=== PATIENT | female | born 1995 | race Caucasian/White ===

== ENCOUNTER 2025-05-06 13:45 | Outpatient (AMB) | payer MEDICAID, SELFPAY ==
[2025-05-06 14:18] VITALS: BP 127/76; PULSE 92; RESP 17; TEMP 36.8; O2SAT 97; BMI 34.7
--- NOTE | 2025-05-06 14:18 | OBCLNT_ITS ---
Vital Signs 05/06/25 14:18 Height 1.47 m Height Method Measured Weight 75.41 kg Weight Measurement Method Standing Scale BMI 34.7 BP 127/76 Blood Pressure Source Automatic Cuff Blood Pressure Location Right Upper Arm Position Sitting Respiration 17 Pulse 92 Pulse Source Monitor Temp 98.2 F Temp Source Temporal Artery Scan Pulse Oximetry (%) 97 Oxygen Delivery Method Room Air Allergies/Home Meds Allergies & Medications Allergies naproxen Allergy (Verified 05/06/25 14:19) Medication Reconciliation vits no.126-ferrous fum 28 mg iron-folic acid 800 mcg tablet (Classic ) tab PO 05/06/25 [History Confirmed 05/06/25] Intake Visit Data Collection New Patient or Established: New Patient (never been to [facility]) Reason for Visit:: Transfer of care 29 weeks Consent obtained for Telemed Visit: No Seen by Clinical Staff ONLY (RN/MA): No Language: Patient speaks South Korean only Fountain Operator Required: Yes Fountain Operator's name/title: Mary Jane medical referral coordinator Do You Feel Safe at Home: Yes Authorities Contacted: N/A PCP or OBGYN visit in last 3 months: No Hx Now: Yes Are you currently on any form of Control: No Last menstrual period: 11/15/24 Pain Present Currently: No Pain Scale Used: Chu-Coulter/Numerical Pain scale:: 0 Smoking Status Smoking Status: Never smoker Questionnaires Covid-19 Vaccine Questionnaire Has patient been vacinated for Covid-19 Have you been vacinated for Covid-19: No PHQ-9 PHQ-2 Over the last 2 weeks, how often have you been bothered by any of the following problems? 1. Little interest or pleasure in doing things: not at all 2. Feeling down, depressed, or hopeless: not at all Total score: 0 PHQ-9 3. Trouble falling or staying asleep, or sleeping too much: Not at all 4. Feeling tired or having little energy: Not at all 5. Poor appetite or overeating: Not at all 6. Feeling bad about yourself - or that you are a failure or have let yourself or your family down: Not at all 7. Trouble concentrating on things, such as reading the newspaper or watching television: Not at all 8. Moving or speaking so slowly that other people could have noticed? - Or the opposite - being so fidgety or restless that you have been moving around a lot more than usual: not at all 9. Thoughts that you would be better off or of hurting yourself in some way: Not at all Total score: 0 If you checked off any problems, how difficult have these problems made it for you to do your work, take care of things at home, or get along with other people?: not difficult at all Source: Developed by Drs. Evgeny Salomon, Brittney Aleman, Bola Tran and colleagues, with an educational supa from [employer]. Social History Living Situation History Marital Status: Lives With: Children Housing: House Housing Other:: Has 2 children at home. Stays at home. Tobacco History Smoking Status: Never smoker Alcohol History Alcohol Intake: Never Domestic Abuse History Do You Feel Safe at Home: Yes History of Present Illness HPI Narrative The patient is a very pleasant 29-year-old -0-0-2 female. She is South Korean-speaking only and her entire physical exam and interview was conducted with Mary Jane medical referral coordinator present. Patient presents as a transfer of care at 29 weeks for history of x 2. Both of her C-sections were in [place]. The first one was for intolerance to of labor at 37 weeks. The second was an elective repeat. Her EDC is 07/25/2025. She was seeing Dr. Vanessa. She states she did her glucose and that she had a normal structural survey during . We have all her records except for her glucose challenge test. Her ultrasound is normal dated 03/08/25. She had a normal NIPT. 46 XY. She reports good movement little loss of fluids no contractions. Patient has a vertical incision on her abdomen and is okay with a Pfannenstiel incision this time. She does not desire a tubal ligation. She stays home with her children. She has an 8-year-old son and a 5-year-old daughter at home. DIRECTOR MONEY: Past Medical History Additional Operations/Hospitalizations (year & reason): 2017 primary in [place] for distress male 2019 repeat [place] female at 39 weeks Other Relevant History: No chronic medical problems, no diabetes no hypertension no asthma. OB Initial Visit OB Flowsheet OB Flowsheet Initial Weight: Not Recorded Date -?-?-?-?-?-?-?-?-?-?-?-?- EGA Weight BP Alb Glu CTX Pres Fundal ht FHR Mov Dilation Station Effacement Hx Notes Visit Note 05/06/25 -?-?-?-?-?-?-?-?-?-?-?-?- 28w 4d 75.41 kg 127/76 absent 31 147 act jose No contractions loss of fluid or vaginal bleeding. Need glucos e challenge results Menstrual History Menstrual reliability: definite Flow: normal Menstrual regularity: regular Monthly: Yes Age at menarche: 14 On control pills at conception: No Date of positive home test: 12/03/24 OB History : 3 Para: 2 Hx # Pregnancies: 2 Hx Total # of Abortions (Spontaneous & Elective): 0 # of Living Children: 2 Delivery History 1st : Child's name: FLORINDA date: 06/28/17 sex: male Gestational age at delivery (weeks): 37 Delivery type: weight (lbs): 2721.554 g History of depression before or after : No Additional comments: PRE-TERM LABOR AT 37WKS 2nd : Child's name: LELIOT BELTRAN date: 02/26/20 sex: female Gestational age at delivery (weeks): 38 Delivery type: weight (lbs): 3628.739 g History of depression before or after : No Infection History & Risk Evaluation History of STDs: none HIV risk evaluation: low risk Hepatitis B risk evaluation: low risk Patient or partner has history of Genital Herpes: No Genetic Screening & History Genetic Screening/Teratology Counseling - Includes patient, baby's father, or anyone in either family with: 1. Patient's age 35 years or older as of estimated date of delivery: No 2. Thalassemia (Saudi Arabian, Korean, Mediterranean, or Background); MCV less t elena 80: No 3. Neural Tube Defect (Meningomyelocele, Spina Bifida, or Anencephaly): No 4. Congenital Heart Defect: No 5. Down Syndrome: No 6. Dae-Sachs (Ashkenazi Jain, Cajun, Burkinan [place]): No 7. Juvenal Disease (Ashkenazi Jain): No 8. Familial Dysautonomia (Ashkenazi Jain): No 9. Sickle Cell Disease or Trait (): No 10. Hemophilia or other blood disorders: No 11. Muscular Dystrophy: No 12. Cystic Fibrosis: No 13. [place]'s Chorea: No 14. Mental Retardation/Autism: No 15. Other inherited genetic or chromosomal disorder: No 16. Maternal Metabolic Disorder (EG,TYPE 1 Diabetes, PKU): No 17. Patient or baby's father had a child with defects not listed above: No 18. Recurrent loss or a stillbirth: No 19. Medications (including supplements, vitamins, herbs or otc drugs)/illicit/recreational drugs/alcohol since last menstrual period: No 20. Any other: No Infection History 1. Live with someone with TB or exposed to TB: No 2. Rash or viral illness since last menstrual period: No 3. Hepatitis B,C: No Other (see comments) Source: [employer] Office Procedures OB Clinic LOC & Office Proc's Nursing/Assessment Patient Status: Initial/New Patient OB Clinic Nursing Assessment: Medication Reconciliation, Update PMH in EMR and Vital Signs OB Clinic Coordination of Care: Complex Care and Chronic Disease 1-5, Consent,records obtained, informed consent, Education Simp Pt/Fam and 4+ Authorizations needed Special Needs: Heart tones New Patient Charge New Patient Point Assignment: [id number] New Patient Point Charge: EQUAL OPPORTUNITY OFFICER Level 4 (4899-1616) Assessment & Plan Diagnosis / Problem List (1) : Status: Acute Qualifiers: Weeks of gestation: 29 weeks Qualified Code(s): Z3A.29 - 29 weeks gestation of (2) Previous section complicating : Status: Acute Assessment and Plan: For repeat at 38 to 39 weeks secondary to undocumented scar x 2. Declines tubal ligation
== END 2025-05-06 14:46 | disposition home or self-care (01) ==
LOC: HODSOBC 13:45
PROVIDERS: Supervising Provider Obstetrics & Gynecology; Visit Provider Obstetrics & Gynecology
DX: O09.293 Supervision of pregnancy with other poor reproductive or obstetric history, third trimester (principal); O34.219 Maternal care for unspecified type scar from previous cesarean delivery; Z3A.28 28 weeks gestation of pregnancy; Z88.6 Allergy status to analgesic agent
CPT/HCPCS: 99204; G0463

== ENCOUNTER 2025-05-22 15:05 | Outpatient (AMB) | payer MEDICAID, SELFPAY ==
[2025-05-22 15:16] VITALS: BP 123/77; PULSE 103; RESP 17; TEMP 36.5; O2SAT 98; BMI 35.6
--- NOTE | 2025-05-22 15:16 | AMB.OBVISIT ---
Vital Signs 05/22/25 15:16 Height 1.47 m Height Method Measured Weight 77.111 kg Weight Measurement Method Standing Scale BMI 35.6 BP 123/77 Blood Pressure Source Automatic Cuff Blood Pressure Location Right Upper Arm Position Sitting Respiration 17 Pulse 103 H Pulse Source Monitor Temp 97.7 F Temp Source Temporal Artery Scan Pulse Oximetry (%) 98 Oxygen Delivery Method Room Air Allergies/Home Meds Allergies & Medications Allergies naproxen Allergy (Verified 05/22/25 15:17) Medication Reconciliation vits no.126-ferrous fum 28 mg iron-folic acid 800 mcg tablet (Classic ) tab PO 05/06/25 [History Confirmed 05/22/25] Intake Visit Data Collection New Patient or Established: Established Patient (seen at [facility] within 3 years) Reason for Visit:: OBC Consent obtained for Telemed Visit: No Seen by Clinical Staff ONLY (RN/MA): No Billboard Poster Required: Yes Billboard Poster's name/title: JOHANA ZARATE Do You Feel Safe at Home: Yes Authorities Contacted: N/A PCP or OBGYN visit in last 3 months: Yes Date of Last PCP or OBGYN visit: 05/06/25 Hx Now: Yes Are you currently on any form of Control: No Pain Present Currently: No Pain Scale Used: Chu-Coulter/Numerical Pain scale:: 0 Smoking Status Smoking Status: Never smoker Questionnaires Covid-19 Vaccine Questionnaire Has patient been vacinated for Covid-19 Have you been vacinated for Covid-19: No PHQ-9 PHQ-2 Over the last 2 weeks, how often have you been bothered by any of the following problems? 1. Little interest or pleasure in doing things: not at all PHQ-9 8. Moving or speaking so slowly that other people could have noticed? - Or the opposite - being so fidgety or restless that you have been moving around a lot more than usual: not at all Source: Developed by Drs. Evgeny Salomon, Brittney Aleman, Bola Tran and colleagues, with an educational supa from [employer]. Social History Living Situation History Marital Status: Lives With: Children Housing: House Housing Other:: Has 2 children at home. Stays at home. Divehi-speaking only Tobacco History Smoking Status: Never smoker Alcohol History Alcohol Intake: Never Domestic Abuse History Do You Feel Safe at Home: Yes ACCOUNTING MANAGER CPA: Past Medical History Additional Operations/Hospitalizations (year & reason): History of x 2 in [place] for was for distress History of Present Illness HPI Narrative The patient is a 29-year-old -0-0-2 history of x 2 in the past performed in [place]. She has an 8-year-old son and 5-year-old daughter. She has a vertical skin incision is okay with a Pfannenstiel. She started her care with Dr. Vanessa. She is a transfer of care. Care OB Visit Log OB Flowsheet Initial Weight: Not Recorded Date <del>?</del> EGA Weight BP Alb Glu CTX Pres Fundal ht FHR Mov Dilation Station Effacement Hx Notes Visit Note 05/06/25 <del>?</del> 28w 4d 75.41 kg 127/76 absent 31 147 active No contractions loss of fluid or vaginal bleeding. Need glucose challenge results 05/22/25 <del>?</del> 30w 6d 77.111 kg 123/77 absent 32 active No contractions loss of fluids or vaginal bleeding. GCT 86 LATOYA Calculator Estimated Delivery Date Method Current WG Current Estimate 07/25/25 LMP (Certain) 31w 4d Other Estimates 07/23/25 Ultrasound #1 31w 6d Expected Delivery Route/Plan History of x 2 For repeat Unknown scar as C-sections in [place], schedule at 38 weeks Patient okay with Pfannenstiel skin incision Specific Issue/Plans [facility]. Transfer of care from Dr. Vanessa at about 28 weeks. B+/antibody screen negative/hepatitis B surface antigen negative/rubella immune/RPR nonreactive/HIV negative/urine culture negative/hemoglobin A1c 5.4/hemoglobin 12.8/NIPT 46 XY/ Structural survey 20 weeks 3 days [facility] imaging on chart and normal Glucose challenge test 86 Pap normal No urine or gonorrhea chlamydia on the chart Notes Visit Date: 05/06/25 Last Updated by: Arlin Franklin (OB Clinic)MD labs [facility] on chart be positive antibody negative hepatitis B surface antigen negative rubella immune RPR nonreactive HIV negative urine culture negative hemoglobin A1c 5.4 hemoglobin 12.8 NIPT 46 XY 20-3/7 weeks ultrasound from [facility] on chart and normal. Pending glucose challenge test. Patient had a Pap without enough cells unsure whether this was repeated. No GC chlamydia on chart. Office Procedures OB Clinic LOC & Office Proc's Nursing/Assessment Patient Status: Established Patient OB Clinic Nursing Assessment: Medication Reconciliation, Update PMH in EMR and Vital Signs OB Clinic Coordination of Care: Complex Care and Chronic Disease 1-5, Consent,records obtained, informed consent, Education Simp Pt/Fam and Results/Orders obtained Special Needs: Heart tones Established Patient Charge Established Patient Point Assignment: 110 Established Patient Point Charge: EP Level 3 (80-115) Assessment & Plan Diagnosis / Problem List (1) Previous section complicating : Status: Acute Plan: Previous x 2. EDC 07/25/2025 Schedule 10 to 14 days early approximately 07/15/2025 (2) : Status: Acute Qualifiers: Weeks of gestation: 32 weeks Qualified Code(s): Z3A.32 - 32 weeks gestation of Additional Plan Follow Up: 2 Weeks
== END 2025-05-22 16:00 | disposition home or self-care (01) ==
LOC: HODSOBC 15:05
PROVIDERS: Supervising Provider Obstetrics & Gynecology; Visit Provider Obstetrics & Gynecology
DX: O09.293 Supervision of pregnancy with other poor reproductive or obstetric history, third trimester (principal); O34.219 Maternal care for unspecified type scar from previous cesarean delivery; Z3A.30 30 weeks gestation of pregnancy; Z87.59 Personal history of other complications of pregnancy, childbirth and the puerperium; Z88.6 Allergy status to analgesic agent
CPT/HCPCS: 99213; G0463

== ENCOUNTER 2025-06-05 13:44 | Outpatient (AMB) | payer MEDICAID, SELFPAY ==
[2025-06-05 13:54] VITALS: BP 125/73; PULSE 107; RESP 16; TEMP 36.2; O2SAT 97; BMI 35.7
--- NOTE | 2025-06-05 13:54 | AMB.OBVISIT ---
Vital Signs 06/05/25 13:54 Height 1.47 m Height Method Stated Weight 77.281 kg Weight Measurement Method Standing Scale BMI 35.7 BP 125/73 Blood Pressure Source Automatic Cuff Blood Pressure Location Left Upper Arm Position Sitting Respiration 16 Pulse 107 H Pulse Source Monitor Temp 97.2 F Temp Source Oral Pulse Oximetry (%) 97 Oxygen Delivery Method Room Air Allergies/Home Meds Allergies & Medications Allergies naproxen Allergy (Verified 06/05/25 13:56) Medication Reconciliation vits no.126-ferrous fum 28 mg iron-folic acid 800 mcg tablet (Classic ) tab PO 05/06/25 [History Confirmed 06/05/25] Intake Visit Data Collection New Patient or Established: Established Patient (seen at [facility] within 3 years) Reason for Visit:: OBC Seen by Clinical Staff ONLY (RN/MA): No Hinging Machine Operator Required: No Do You Feel Safe at Home: Yes Authorities Contacted: N/A PCP or OBGYN visit in last 3 months: Yes Date of Last PCP or OBGYN visit: 05/22/25 Hx Now: Yes Are you currently on any form of Control: No Pain Present Currently: No Pain Scale Used: Chu-Coulter/Numerical Pain scale:: 0 Smoking Status Smoking Status: Never smoker Questionnaires Covid-19 Vaccine Questionnaire Has patient been vacinated for Covid-19 Have you been vacinated for Covid-19: Yes PHQ-9 PHQ-2 Over the last 2 weeks, how often have you been bothered by any of the following problems? 1. Little interest or pleasure in doing things: not at all 2. Feeling down, depressed, or hopeless: not at all Total score: 0 PHQ-9 3. Trouble falling or staying asleep, or sleeping too much: Not at all 4. Feeling tired or having little energy: Not at all 5. Poor appetite or overeating: Not at all 6. Feeling bad about yourself - or that you are a failure or have let yourself or your family down: Not at all 7. Trouble concentrating on things, such as reading the newspaper or watching television: Not at all 8. Moving or speaking so slowly that other people could have noticed? - Or the opposite - being so fidgety or restless that you have been moving around a lot more than usual: not at all 9. Thoughts that you would be better off or of hurting yourself in some way: Not at all Total score: 0 If you checked off any problems, how difficult have these problems made it for you to do your work, take care of things at home, or get along with other people?: not difficult at all Source: Developed by Drs. Evgeny Salomon, Brittney Aleman, Bola Tran and colleagues, with an educational supa from [employer]. Depression screen completed yes Social History Living Situation History Lives With: Children Housing: House Housing Other:: Has 2 children at home. Stays at home. Faroese-speaking only Tobacco History Smoking Status: Never smoker Second Hand Smoke Exposure: No Alcohol History Alcohol Intake: Never Domestic Abuse History Do You Feel Safe at Home: Yes Care OB Visit Log OB Flowsheet Initial Weight: Not Recorded Date <del>?</del> EGA Weight BP Alb Glu CTX Pres Fundal ht FHR Mov Dilation Station Effacement Hx Notes Visit Note 05/06/25 <del>?</del> 28w 4d 75.41 kg 127/76 absent 31 147 active No contractions loss of fluid or vaginal bleeding. Need glucose challenge results 05/22/25 <del>?</del> 30w 6d 77.111 kg 123/77 absent 32 active No contractions loss of fluids or vaginal bleeding. GCT 86 06/05/25 <del>?</del> 32w 6d 77.281 kg 125/73 absent 36 156 active No contractions no loss of fluids or vaginal bleeding Schedule ultrasound size greater than dates LATOYA Calculator Estimated Delivery Date Method Current WG Current Estimate 07/25/25 LMP (Certain) 32w 6d Other Estimates 07/23/25 Ultrasound #1 33w 1d Expected Delivery Route/Plan History of x 2 For repeat Unknown scar as C-sections in [place], schedule at 38 weeks Patient okay with Pfannenstiel skin incision Specific Issue/Plans [facility]. Transfer of care from Dr. Vanessa at about 28 weeks. B+/antibody screen negative/hepatitis B surface antigen negative/rubella immune/RPR nonreactive/HIV negative/urine culture negative/hemoglobin A1c 5.4/hemoglobin 12.8/NIPT 46 XY/ Structural survey 20 weeks 3 days [facility] imaging on chart and normal Glucose challenge test 86 Pap normal No urine or gonorrhea chlamydia on the chart Notes Visit Date: 06/05/25 Last Updated by: Arlin Franklin (OB Clinic)MD Schedule ultrasound size greater than dates Scheduled 07/12/2025 at B8 and change secondary to unknown scar x 2 in [place]. EDC 07/23/2025. Visit Date: 05/06/25 Last Updated by: Arlin Franklin (OB Clinic)MD labs [facility] on chart be positive antibody negative hepatitis B surface antigen negative rubella immune RPR nonreactive HIV negative urine culture negative hemoglobin A1c 5.4 hemoglobin 12.8 NIPT 46 XY 20-3/7 weeks ultrasound from [facility] imaging on chart and normal. Pending glucose challenge test. Patient had a Pap without enough cells unsure whether this was repeated. No GC chlamydia on chart. Office Procedures OB Clinic LOC & Office Proc's Nursing/Assessment Patient Status: Established Patient OB Clinic Nursing Assessment: Medication Reconciliation, Update PMH in EMR and Vital Signs OB Clinic Coordination of Care: Education Complex Pt/Fam, Consent,records obtained, informed consent, Lab and Imaging orders and Staff clarify orders Special Needs: Heart tones Established Patient Charge Established Patient Point Assignment: 110 Established Patient Point Charge: EP Level 3 (80-115) Assessment & Plan Diagnosis / Problem List (1) Previous section complicating : Status: Acute Assessment and Plan: Repeat at 38 weeks around 07/12/2025 (2) : Status: Acute Qualifiers: Weeks of gestation: 34 weeks Qualified Code(s): Z3A.34 - 34 weeks gestation of (3) Large for gestational age fetus affecting mother, antepartum, third trimester, single gestation: Status: Acute Plan: Check pelvic ultrasound
== END 2025-06-05 14:52 | disposition home or self-care (01) ==
LOC: HODSOBC 13:44
PROVIDERS: Supervising Provider Obstetrics & Gynecology; Visit Provider Obstetrics & Gynecology
DX: O09.293 Supervision of pregnancy with other poor reproductive or obstetric history, third trimester (principal); O34.219 Maternal care for unspecified type scar from previous cesarean delivery; O09.893 Supervision of other high risk pregnancies, third trimester; O36.63X0 Maternal care for excessive fetal growth, third trimester, not applicable or unspecified; Z3A.32 32 weeks gestation of pregnancy; Z88.6 Allergy status to analgesic agent
CPT/HCPCS: 99213; G0463

== ENCOUNTER → 2025-06-14 | Outpatient (CLI) | payer MEDICAID, SELFPAY ==
--- NOTE | 2025-06-14 13:30 | XR_ITS ---
Examination: Complete OB ultrasound greater than 14 weeks Date and time of exam: June 14, 2025 1345 hours INDICATIONS: Diagnosis large for gestational age Findings: Viable intrauterine single fetus with single amniotic sac presentation cephalic Cardiac motion 169 bpm Placenta anterior grade 2 Umbilical cord insertion 3 vessel seen Amniotic fluid index 19.0 cm spine maternal left Cervix 4.0 cm Ovaries obscured by bowel gas. Composite estimated gestational age based on BPD, head circumference, abdominal circumference, femur length is 35 weeks 6 days Estimated weight 2821 g. Survey of intracranial anatomy, spinal anatomy, abdominal anatomy, four-chamber heart performed with no abnormalities identified. Impression: Viable intrauterine gestation cephalic presentation.
== END | disposition home or self-care (01) ==
PROVIDERS: Referring Provider Obstetrics & Gynecology; Visit Provider Obstetrics & Gynecology
DX: O36.63X0 Maternal care for excessive fetal growth, third trimester, not applicable or unspecified (principal); O34.219 Maternal care for unspecified type scar from previous cesarean delivery; Z3A.35 35 weeks gestation of pregnancy
CPT/HCPCS: 76805

== ENCOUNTER 2025-06-19 14:16 | Outpatient (AMB) | payer MEDICAID, SELFPAY ==
[2025-06-19 14:40] VITALS: BP 109/65; PULSE 92; RESP 16; TEMP 36.6; O2SAT 97; BMI 35.8
--- NOTE | 2025-06-19 14:40 | OBCLNT_ITS ---
Vital Signs 06/19/25 14:40 Height 1.47 m Height Method Stated Weight 77.337 kg Weight Measurement Method Standing Scale BMI 35.8 BP 109/65 Blood Pressure Source Automatic Cuff Blood Pressure Location Left Upper Arm Position Sitting Respiration 16 Pulse 92 Pulse Source Monitor Temp 97.8 F Temp Source Oral Pulse Oximetry (%) 97 Oxygen Delivery Method Room Air Allergies/Home Meds Allergies & Medications Allergies naproxen Allergy (Verified 06/19/25 14:41) Medication Reconciliation vits no.126-ferrous fum 28 mg iron-folic acid 800 mcg tablet (Classic ) tab PO 05/06/25 [History Confirmed 06/19/25] docusate sodium 100 mg capsule (Colace) 100 mg PO QDAY #30 caps 06/05/25 [Rx Confirmed 06/19/25] ferrous sulfate 325 mg (65 mg iron) tablet (Feosol) 325 mg PO QDAY #30 tabs 06/05/25 [Rx Confirmed 06/19/25] Intake Visit Data Collection New Patient or Established: Established Patient (seen at [facility] within 3 years) Reason for Visit:: OBC Seen by Clinical Staff ONLY (RN/MA): No Leather Goods Maker Required: Yes Leather Goods Maker's name/title: IGOR JOSE MA Do You Feel Safe at Home: Yes Authorities Contacted: N/A PCP or OBGYN visit in last 3 months: Yes Date of Last PCP or OBGYN visit: 06/05/25 Hx Now: Yes Are you currently on any form of Control: No Pain Present Currently: Yes Pain Scale Used: Chu-Coulter/Numerical Pain scale:: 0 Smoking Status Smoking Status: Never smoker Questionnaires Covid-19 Vaccine Questionnaire Has patient been vacinated for Covid-19 Have you been vacinated for Covid-19: Yes PHQ-9 PHQ-2 Over the last 2 weeks, how often have you been bothered by any of the following problems? 1. Little interest or pleasure in doing things: not at all 2. Feeling down, depressed, or hopeless: not at all Total score: 0 PHQ-9 3. Trouble falling or staying asleep, or sleeping too much: Not at all 4. Feeling tired or having little energy: Not at all 5. Poor appetite or overeating: Not at all 6. Feeling bad about yourself - or that you are a failure or have let yourself or your family down: Not at all 7. Trouble concentrating on things, such as reading the newspaper or watching television: Not at all 8. Moving or speaking so slowly that other people could have noticed? - Or the opposite - being so fidgety or restless that you have been moving around a lot more than usual: not at all 9. Thoughts that you would be better off or of hurting yourself in some way: Not at all Total score: 0 If you checked off any problems, how difficult have these problems made it for you to do your work, take care of things at home, or get along with other people?: not difficult at all Source: Developed by Drs. Evgeny Salomon, Brittney Aleman, Bola Tran and colleagues, with an educational supa from [employer]. Depression screen completed yes Social History Living Situation History Lives With: Children Housing: House Housing Other:: Has 2 children at home. Stays at home. Polish-speaking only Tobacco History Smoking Status: Never smoker Second Hand Smoke Exposure: No Alcohol History Alcohol Intake: Never Domestic Abuse History Do You Feel Safe at Home: Yes Care OB Visit Log OB Flowsheet Initial Weight: Not Recorded Date -?-?-?-?-?-?-?-?-?-?-?-?- EGA Weight BP Alb Glu CTX Pres Fundal ht FHR Mov Dilation Station Effacement Hx Notes Visit Note 05/06/25 -?-?-?-?-?-?-?-?-?-?-?-?- 28w 4d 75.41 kg 127/76 absent 31 147 act jose No contractions loss of fluid or vaginal bleeding. Need glucos e challenge results 05/22/25 -?-?-?-?-?-?-?-?-?-?-?-?- 30w 6d 77.111 kg 123/77 absent 32 active No contractions loss of fluids or vaginal bleeding. GCT 86 06/05/25 -?-?-?-?-?-?-?-?-?-?-?-?- 32w 6d 77.281 kg 125/73 absent 36 156 ac tive No contractions no loss of fluids or vaginal bleeding Sched ule ultrasound size greater than dates 06/19/25 -?-?-?-?-?-?-?-?-?-?-?-?- 34w 6d 77.337 kg 109/65 absent 36 134 ac tive No contractions loss of fluids or vaginal bleeding. Need group B strep next week. LATOYA Calculator Estimated Delivery Date Method Current WG Current Estimate 07/25/25 LMP (Certain) 34w 6d Other Estimates 07/23/25 Ultrasound #1 35w 1d Expected Delivery Route/Plan History of x 2 For repeat Unknown scar as C-sections in [place], schedule at 38 weeks Patient okay with Pfannenstiel skin incision Specific Issue/Plans [facility]. Transfer of care from Dr. Vanessa at about 28 weeks. B+/antibody screen negative/hepatitis B surface antigen negative/rubella immune/RPR nonreactive/HIV negative/urine culture negative/hemoglobin A1c 5.4/hemoglobin 12.8/NIPT 46 XY/ Structural survey 20 weeks 3 days [facility] imaging on chart and normal Glucose challenge test 86 Pap normal No urine or gonorrhea chlamydia on the chart Notes Visit Date: 06/19/25 Last Updated by: Arlin Franklin (OB Clinic)MD Patient was scheduled 07/12/2025 but I am not on-call. Dr. Argueta is. Patient would prefer I do her so we are going to try to move it to 07/15/2025. Visit Date: 06/05/25 Last Updated by: Arlin Franklin (OB Clinic)MD Schedule ultrasound size greater than dates Scheduled 07/12/2025 at B8 and change secondary to unknown scar x 2 in [place]. EDC 07/23/2025. Visit Date: 05/06/25 Last Updated by: Arlin Franklin (OB Clinic)MD labs [facility] on chart be positive antibody negative hepatitis B surface antigen negative rubella immune RPR nonreactive HIV negative urine culture negative hemoglobin A1c 5.4 hemoglobin 12.8 NIPT 46 XY 20-3/7 weeks ultrasound from [facility] on chart and normal. Pending glucose challenge test. Patient had a Pap without enough cells unsure whether this was repeated. No GC chlamydia on chart. Office Procedures OB Clinic LOC & Office Proc's Nursing/Assessment Patient Status: Established Patient OB Clinic Nursing Assessment: Medication Reconciliation, Update PMH in EMR and Vital Signs OB Clinic Coordination of Care: Education Complex Pt/Fam, Consent,records obtained, informed consent, Lab and Imaging orders, Results/Orders obtained and Staff clarify orders Special Needs: Heart tones Established Patient Charge Established Patient Point Assignment: 115 Established Patient Point Charge: EP Level 3 (80-115) Assessment & Plan Diagnosis / Problem List (1) Large for gestational age fetus affecting mother, antepartum, third trimester, single gestation: Status: Acute (2) Previous section complicating : Status: Acute (3) : Status: Acute Qualifiers: Weeks of gestation: 35 weeks Qualified Code(s): Z3A.35 - 35 weeks gestation of
== END 2025-06-19 16:05 | disposition home or self-care (01) ==
PROVIDERS: Supervising Provider Obstetrics & Gynecology; Visit Provider Obstetrics & Gynecology
DX: O09.293 Supervision of pregnancy with other poor reproductive or obstetric history, third trimester (principal); O34.219 Maternal care for unspecified type scar from previous cesarean delivery; O09.893 Supervision of other high risk pregnancies, third trimester; O36.63X0 Maternal care for excessive fetal growth, third trimester, not applicable or unspecified; Z3A.34 34 weeks gestation of pregnancy; Z88.6 Allergy status to analgesic agent
CPT/HCPCS: 99213; G0463

== ENCOUNTER 2025-06-24 21:44 | Observation (INO) | payer MEDICAID, SELFPAY ==
[2025-06-24 21:54] VITALS: BP 124/69; PULSE 90
[2025-06-24 21:55] VITALS: BP 124/69; PULSE 90; RESP 18; RESP 98; TEMP 36.9
[2025-06-24 22:24] VITALS: BP 110/70; PULSE 96
[2025-06-24 22:55] VITALS: BP 104/56; PULSE 80
[2025-06-24 23:01] LABS: ROM Kit Exp Date# 01/18/28; ROM Kit Lot # 58104371; Swb Mxed in Solvent 1 min? Yes
[2025-06-24 23:02] LABS: ROM Swab Mixed By: DURAJ; Rupture of Fetal Membranes Negative (Negative)
[2025-06-24 23:25] VITALS: BP 105/58; PULSE 75
[2025-06-24 23:55] VITALS: BP 106/64; PULSE 81
[2025-06-25 00:52] VITALS: BMI 33.4
== END 2025-06-25 00:35 | disposition home or self-care (01) ==
PROVIDERS: Admitting Provider Obstetrics & Gynecology; Visit Provider Obstetrics & Gynecology
DX: O26.893 Other specified pregnancy related conditions, third trimester (principal); Z3A.35 35 weeks gestation of pregnancy; M54.50 Low back pain, unspecified
CPT/HCPCS: 59025; 59899; 84112

== ENCOUNTER 2025-06-26 14:21 | Outpatient (AMB) | payer MEDICAID, SELFPAY ==
[2025-06-26 14:28] VITALS: BP 108/66; PULSE 81; RESP 16; TEMP 36.6; O2SAT 98; BMI 33.6
--- NOTE | 2025-06-26 14:28 | OBCLNT_ITS ---
Vital Signs 06/26/25 14:28 Height 1.52 m Height Method Stated Weight 77.791 kg Weight Measurement Method Standing Scale BMI 33.6 BP 108/66 Blood Pressure Source Automatic Cuff Blood Pressure Location Left Upper Arm Position Sitting Respiration 16 Pulse 81 Pulse Source Monitor Temp 97.8 F Temp Source Oral Pulse Oximetry (%) 98 Oxygen Delivery Method Room Air Allergies/Home Meds Allergies & Medications Allergies naproxen Allergy (Verified 06/26/25 14:31) Medication Reconciliation vits no.126-ferrous fum 28 mg iron-folic acid 800 mcg tablet (Classic ) 1 tab PO QDAY 05/06/25 [History Confirmed 06/26/25] docusate sodium 100 mg capsule (Colace) 100 mg PO QDAY #30 caps 06/05/25 [Rx Confirmed 06/26/25] ferrous sulfate 325 mg (65 mg iron) tablet (Feosol) 325 mg PO QDAY #30 tabs 06/05/25 [Rx Confirmed 06/26/25] aspirin 81 mg chewable tablet 1 tab PO 06/25/25 [History Confirmed 06/26/25] Intake Visit Data Collection New Patient or Established: Established Patient (seen at [facility] within 3 years) Reason for Visit:: CARE Seen by Clinical Staff ONLY (RN/MA): No High Raw Sugar Boiler Required: No Do You Feel Safe at Home: Yes Authorities Contacted: N/A PCP or OBGYN visit in last 3 months: Yes Hx Now: No Are you currently on any form of Control: No Pain Present Currently: No Pain Scale Used: Chu-Coulter/Numerical Pain scale:: 0 Smoking Status Smoking Status: Never smoker Questionnaires Covid-19 Vaccine Questionnaire Has patient been vacinated for Covid-19 Have you been vacinated for Covid-19: No PHQ-9 PHQ-2 Over the last 2 weeks, how often have you been bothered by any of the following problems? 1. Little interest or pleasure in doing things: not at all 2. Feeling down, depressed, or hopeless: not at all Total score: 0 PHQ-9 3. Trouble falling or staying asleep, or sleeping too much: Not at all 4. Feeling tired or having little energy: Not at all 5. Poor appetite or overeating: Not at all 6. Feeling bad about yourself - or that you are a failure or have let yourself or your family down: Not at all 7. Trouble concentrating on things, such as reading the newspaper or watching television: Not at all 8. Moving or speaking so slowly that other people could have noticed? - Or the opposite - being so fidgety or restless that you have been moving around a lot more than usual: not at all 9. Thoughts that you would be better off or of hurting yourself in some way: Not at all Total score: 0 Source: Developed by Drs. Evgeny Salomon, Brittney Aleman, Bola Tran and colleagues, with an educational supa from [employer]. Depression screen completed yes Social History Living Situation History Lives With: Children Housing: House Housing Other:: Has 2 children at home. Stays at home. Urdu-speaking only Tobacco History Smoking Status: Never smoker Second Hand Smoke Exposure: No Alcohol History Alcohol Intake: Never Domestic Abuse History Do You Feel Safe at Home: Yes Care OB Visit Log OB Flowsheet Initial Weight: Not Recorded Date -?-?-?-?-?-?-?-?-?-?-?-?- EGA Weight BP Alb Glu CTX Pres Fundal ht FHR Mov Dilation Station Effacement Hx Notes Visit Note 05/06/25 -?-?-?-?-?-?-?-?-?-?-?-?- 28w 4d 75.41 kg 127/76 absent 31 147 act jose No contractions loss of fluid or vaginal bleeding. Need glucos e challenge results 05/22/25 -?-?-?-?-?-?-?-?-?-?-?-?- 30w 6d 77.111 kg 123/77 absent 32 active No contractions loss of fluids or vaginal bleeding. GCT 86 06/05/25 -?-?-?-?-?-?-?-?-?-?-?-?- 32w 6d 77.281 kg 125/73 absent 36 156 ac tive No contractions no loss of fluids or vaginal bleeding Sched ule ultrasound size greater than dates 06/19/25 -?-?--?-?-?-?-?-?-?-?-?-?- 34w 6d 77.337 kg 109/65 absent 36 134 ac tive No contractions loss of fluids or vaginal bleeding. Need group B strep next week. 06/26/25 -?-?-?-?-?-?-?-?-?-?-?-?- 35w 6d 77.791 kg 108/66 occasional 36 156 active +F M No VB or LOF Was in OBT recently to r/o PTL. Cx closed. Given terb LATOYA Calculator Estimated Delivery Date Method Current WG Current Estimate 07/25/25 LMP (Certain) 36w 0d Other Estimates 07/23/25 Ultrasound #1 36w 2d Expected Delivery Route/Plan History of x 2 For repeat Unknown scar as C-sections in [place], schedule at 38 weeks Patient okay with Pfannenstiel skin incision Specific Issue/Plans [facility]. Transfer of care from Dr. Vanessa at about 28 weeks. B+/antibody screen negative/hepatitis B surface antigen negative/rubella immune/RPR nonreactive/HIV negative/urine culture negative/hemoglobin A1c 5.4/hemoglobin 12.8/NIPT 46 XY/ Structural survey 20 weeks 3 days [facility] imaging on chart and normal Glucose challenge test 86 Pap normal No urine or gonorrhea chlamydia on the chart Notes Visit Date: 06/26/25 Last Updated by: Arlin Franklin (OB Clinic)MD GBBS done. Reviewed CS date 0f 07/15. Pt desires Pfanensteil incision Visit Date: 06/19/25 Last Updated by: Arlin Franklin (OB Clinic)MD Patient was scheduled 07/12/2025 but I am not on-call. Dr. Argueta is. Patient would prefer I do her so we are going to try to move it to 07/15/2025. Visit Date: 06/05/25 Last Updated by: Arlin Franklin (OB Clinic)MD Schedule ultrasound size greater than dates Scheduled 07/12/2025 at B8 and change secondary to unknown scar x 2 in [place]. EDC 07/23/2025. Visit Date: 05/06/25 Last Updated by: Arlin Franklin (OB Clinic)MD labs [facility] on chart be positive antibody negative hepatitis B surface antigen negative rubella immune RPR nonreactive HIV negative urine culture negative hemoglobin A1c 5.4 hemoglobin 12.8 NIPT 46 XY 20-3/7 weeks ultrasound from [facility] on chart and normal. Pending glucose challenge test. Patient had a Pap without enough cells unsure whether this was repeated. No GC chlamydia on chart. Office Procedures OB Clinic LOC & Office Proc's Nursing/Assessment Patient Status: Established Patient OB Clinic Nursing Assessment: Medication Reconciliation, Update PMH in EMR and Vital Signs OB Clinic Coordination of Care: Complex Care and Chronic Disease 1-5, Consent,records obtained, informed consent, Education Simp Pt/Fam, 1 Ins Authorization, Lab and Imaging orders, Results/Orders obtained and Staff clarify orders Special Needs: Heart tones Miscellaneous Interventions: Culture Specimen Collection Established Patient Charge Established Patient Point Assignment: 165 Established Patient Point Charge: EP Level 5 (160-above) Assessment & Plan Diagnosis / Problem List (1) Large for gestational age fetus affecting mother, antepartum, third trimester, single gestation: Status: Acute (2) Previous section complicating : Status: Acute Plan: Repeat CS scheduled 07/15/25 (3) : Status: Acute Qualifiers: Weeks of gestation: 36 weeks Qualified Code(s): Z3A.36 - 36 weeks gestation of Plan: GBBS done
== END 2025-06-26 15:27 | disposition home or self-care (01) ==
LOC: HODSOBC 14:21
PROVIDERS: Supervising Provider Obstetrics & Gynecology; Visit Provider Obstetrics & Gynecology
DX: O09.293 Supervision of pregnancy with other poor reproductive or obstetric history, third trimester (principal); O34.219 Maternal care for unspecified type scar from previous cesarean delivery; O09.893 Supervision of other high risk pregnancies, third trimester; O36.63X0 Maternal care for excessive fetal growth, third trimester, not applicable or unspecified; Z3A.35 35 weeks gestation of pregnancy; Z36.85 Encounter for antenatal screening for Streptococcus B; Z88.6 Allergy status to analgesic agent
CPT/HCPCS: 99215; G0463

== ENCOUNTER 2025-07-05 14:28 | Outpatient (AMB) | payer MEDICAID, SELFPAY ==
[2025-07-05 14:45] VITALS: BP 122/75; PULSE 99; RESP 16; TEMP 36.2; O2SAT 97; BMI 34.0
--- NOTE | 2025-07-05 14:45 | OBCLNT_ITS ---
Vital Signs 07/05/25 14:45 Height 1.52 m Height Method Stated Weight 78.528 kg Weight Measurement Method Standing Scale BMI 34.0 BP 122/75 Blood Pressure Source Automatic Cuff Blood Pressure Location Left Upper Arm Position Sitting Respiration 16 Pulse 99 Pulse Source Monitor Temp 97.2 F Temp Source Oral Pulse Oximetry (%) 97 Oxygen Delivery Method Room Air Allergies/Home Meds Allergies & Medications Allergies naproxen Allergy (Verified 07/05/25 14:46) Medication Reconciliation vits no.126-ferrous fum 28 mg iron-folic acid 800 mcg tablet (Classic ) 1 tab PO QDAY 05/06/25 [History Confirmed 07/05/25] docusate sodium 100 mg capsule (Colace) 100 mg PO QDAY #30 caps 06/05/25 [Rx Confirmed 07/05/25] ferrous sulfate 325 mg (65 mg iron) tablet (Feosol) 325 mg PO QDAY #30 tabs 06/05/25 [Rx Confirmed 07/05/25] aspirin 81 mg chewable tablet 1 tab PO 06/25/25 [History Confirmed 07/05/25] Intake Visit Data Collection New Patient or Established: Established Patient (seen at [facility] within 3 years) Reason for Visit:: obc Seen by Clinical Staff ONLY (RN/MA): No Oral And Maxillofacial Surgery Required: Yes Oral And Maxillofacial Surgery's name/title: paige cordero Do You Feel Safe at Home: Yes Authorities Contacted: N/A PCP or OBGYN visit in last 3 months: Yes Date of Last PCP or OBGYN visit: 06/26/25 Hx Now: Yes Are you currently on any form of Control: No Pain Present Currently: No Pain Scale Used: Chu-Coulter/Numerical Pain scale:: 0 Smoking Status Smoking Status: Never smoker Questionnaires Covid-19 Vaccine Questionnaire Has patient been vacinated for Covid-19 Have you been vacinated for Covid-19: Yes PHQ-9 PHQ-2 Over the last 2 weeks, how often have you been bothered by any of the following problems? 1. Little interest or pleasure in doing things: not at all 2. Feeling down, depressed, or hopeless: not at all Total score: 0 PHQ-9 3. Trouble falling or staying asleep, or sleeping too much: Not at all 4. Feeling tired or having little energy: Not at all 5. Poor appetite or overeating: Not at all 6. Feeling bad about yourself - or that you are a failure or have let yourself or your family down: Not at all 7. Trouble concentrating on things, such as reading the newspaper or watching television: Not at all 8. Moving or speaking so slowly that other people could have noticed? - Or the opposite - being so fidgety or restless that you have been moving around a lot more than usual: not at all 9. Thoughts that you would be better off or of hurting yourself in some way: Not at all Total score: 0 If you checked off any problems, how difficult have these problems made it for you to do your work, take care of things at home, or get along with other people?: not difficult at all Source: Developed by Drs. Evgeny Salomon, Brittney Aleman, Bola Tran and colleagues, with an educational supa from [employer]. Depression screen completed yes Social History Living Situation History Lives With: Children Housing: House Housing Other:: Has 2 children at home. Stays at home. Polish-speaking only Tobacco History Smoking Status: Never smoker Second Hand Smoke Exposure: No Alcohol History Alcohol Intake: Never Domestic Abuse History Do You Feel Safe at Home: Yes Care OB Visit Log OB Flowsheet Initial Weight: Not Recorded Date -?-?-?-?-?-?-?-?-?-?-?-?- EGA Weight BP Alb Glu CTX Pres Fundal ht FHR Mov Dilation Station Effacement Hx Notes Visit Note 05/06/25 -?-?-?-?-?-?-?-?-?-?-?-?- 28w 4d 75.41 kg 127/76 absent 31 147 act jose No contractions loss of fluid or vaginal bleeding. Need glucos e challenge results 05/22/25 -?-?-?-?-?-?-?-?-?-?-?-?- 30w 6d 77.111 kg 123/77 absent 32 active No contractions loss of fluids or vaginal bleeding. GCT 86 06/05/25 -?-?-?-?-?-?-?-?-?-?-?-?- 32w 6d 77.281 kg 125/73 absent 36 156 ac tive No contractions no loss of fluids or vaginal bleeding Sched ule ultrasound size greater than dates 06/19/25 -?-?-?-?-?-?-?-?-?-?-?-?- 34w 6d 77.337 kg 109/65 absent 36 134 ac tive No contractions loss of fluids or vaginal bleeding. Need group B strep next week. 06/26/25 -?-?-?-?-?-?-?-?-?-?-?-?- 35w 6d 77.791 kg 108/66 occasional 36 156 active +F M No VB or LOF Was in OBT recently to r/o PTL. Cx closed. Given terb 07/05/25 -?-?-?-?--?-?-?-?-?-?-?-?- 37w 1d 78.528 kg 122/75 occasional 39 153 active Patient states movement is decreased. She is worried about the fluid on the baby. She states her last was complicated by low fluid. No contractions no vaginal bleeding. LATOYA Calculator Estimated Delivery Date Method Current WG Current Estimate 07/25/25 LMP (Certain) 37w 1d Other Estimates 07/23/25 Ultrasound #1 37w 3d Expected Delivery Route/Plan History of x 2 EDC 07/25/2025 For repeat Unknown scar as C-sections in [place], schedule at 38 weeks Patient okay with Pfannenstiel skin incision Specific Issue/Plans [facility]. Transfer of care from Dr. Vanessa at about 28 weeks. B+/antibody screen negative/hepatitis B surface antigen negative/rubella immune/RPR nonreactive/HIV negative/urine culture negative/hemoglobin A1c 5.4/hemoglobin 12.8/NIPT 46 XY/ Structural survey 20 weeks 3 days [facility] imaging on chart and normal Glucose challenge test 86 Pap normal No urine or gonorrhea chlamydia on the chart Notes Visit Date: 07/05/25 Last Updated by: Arlin Franklin (OB Clinic)MD Patient sent to labor and delivery for NST ABIEL and weight. Group B strep is negative. Visit Date: 06/26/25 Last Updated by: Arlin Franklin (OB Clinic)MD GBBS done. Reviewed CS date 0f 07/15. Pt desires Pfanensteil incision Visit Date: 06/19/25 Last Updated by: Arlin Franklin (OB Clinic)MD Patient was scheduled 07/12/2025 but I am not on-call. Dr. Argueta is. Patient would prefer I do her so we are going to try to move it to 07/15/2025. Visit Date: 06/05/25 Last Updated by: Arlin Franklin (OB Clinic)MD Schedule ultrasound size greater than dates Scheduled 07/12/2025 at B8 and change secondary to unknown scar x 2 in [place]. EDC 07/23/2025. Visit Date: 05/06/25 Last Updated by: Arlin Franklin (OB Clinic)MD labs [facility] on chart be positive antibody negative hepatitis B surface antigen negative rubella immune RPR nonreactive HIV negative urine culture negative hemoglobin A1c 5.4 hemoglobin 12.8 NIPT 46 XY 20-3/7 weeks ultrasound from [facility] on chart and normal. Pending glucose challenge test. Patient had a Pap without enough cells unsure whether this was repeated. No GC chlamydia on chart. Office Procedures OBC Clinic LOC & Office Proc's Nursing/Assessment Patient Status: Established Patient OB Clinic Nursing Assessment: Medication Reconciliation, Update PMH in EMR and Vital Signs OB Clinic Coordination of Care: Education Complex Pt/Fam, Consent,records obtained, informed consent, Lab and Imaging orders, Results/Orders obtained and Staff clarify orders Special Needs: Heart tones Established Patient Charge Established Patient Point Assignment: 115 Established Patient Point Charge: EP Level 3 (80-115) Assessment & Plan Diagnosis / Problem List (1) Previous section complicating : Status: Acute Plan: Patient is scheduled for elective repeat section at 38 to 39 weeks on July 15, 2025. (2) : Status: Acute Qualifiers: Weeks of gestation: 37 weeks Qualified Code(s): Z3A.37 - 37 weeks gestation of (3) Large for gestational age fetus affecting mother, antepartum, third trime ster, single gestation: Status: Acute Additional Plan To labor and delivery for monitoring secondary to decreased movement. Patient is also very worried about a low fluid level.
== END 2025-07-05 14:44 | disposition home or self-care (01) ==
LOC: HODSOBC 14:28
PROVIDERS: Supervising Provider Obstetrics & Gynecology; Visit Provider Obstetrics & Gynecology
DX: O09.293 Supervision of pregnancy with other poor reproductive or obstetric history, third trimester (principal); O34.219 Maternal care for unspecified type scar from previous cesarean delivery; O09.893 Supervision of other high risk pregnancies, third trimester; O36.63X0 Maternal care for excessive fetal growth, third trimester, not applicable or unspecified; Z3A.37 37 weeks gestation of pregnancy
CPT/HCPCS: 99213; G0463

== ENCOUNTER 2025-07-10 12:46 | Outpatient (AMB) | payer MEDICAID, SELFPAY ==
--- NOTE | 2025-07-10 13:03 | OBCLNT_ITS ---
Vital Signs 07/10/25 13:04 Height 1.52 m Height Method Stated Weight 78.471 kg Weight Measurement Method Standing Scale BMI 34.0 BP 114/72 Blood Pressure Source Automatic Cuff Blood Pressure Location Left Upper Arm Position Sitting Respiration 18 Pulse 98 Pulse Source Monitor Temp 97.3 F Temp Source Oral Pulse Oximetry (%) 96 Oxygen Delivery Method Room Air Allergies/Home Meds Allergies & Medications Allergies naproxen Allergy (Verified 07/10/25 13:05) Medication Reconciliation vits no.126-ferrous fum 28 mg iron-folic acid 800 mcg tablet (Classic ) 1 tab PO QDAY 05/06/25 [History Confirmed 07/10/25] docusate sodium 100 mg capsule (Colace) 100 mg PO QDAY #30 caps 06/05/25 [Rx Confirmed 07/10/25] ferrous sulfate 325 mg (65 mg iron) tablet (Feosol) 325 mg PO QDAY #30 tabs 06/05/25 [Rx Confirmed 07/10/25] aspirin 81 mg chewable tablet 1 tab PO 06/25/25 [History Confirmed 07/10/25] Intake Visit Data Collection New Patient or Established: Established Patient (seen at [facility] within 3 years) Reason for Visit:: CARE Seen by Clinical Staff ONLY (RN/MA): No Solar Electric Practitioner Required: No Do You Feel Safe at Home: Yes Authorities Contacted: N/A PCP or OBGYN visit in last 3 months: Yes Hx Now: Yes Are you currently on any form of Control: No Pain Present Currently: Yes Pain Location: Head Pain Scale Used: Chu-Coulter/Numerical Pain scale:: 9 Smoking Status Smoking Status: Never smoker Questionnaires Covid-19 Vaccine Questionnaire Has patient been vacinated for Covid-19 Have you been vacinated for Covid-19: Yes PHQ-9 PHQ-2 Over the last 2 weeks, how often have you been bothered by any of the following problems? 1. Little interest or pleasure in doing things: not at all 2. Feeling down, depressed, or hopeless: not at all Total score: 0 PHQ-9 3. Trouble falling or staying asleep, or sleeping too much: Not at all 4. Feeling tired or having little energy: Not at all 5. Poor appetite or overeating: Not at all 6. Feeling bad about yourself - or that you are a failure or have let yourself or your family down: Not at all 7. Trouble concentrating on things, such as reading the newspaper or watching television: Not at all 8. Moving or speaking so slowly that other people could have noticed? - Or the opposite - being so fidgety or restless that you have been moving around a lot more than usual: not at all 9. Thoughts that you would be better off or of hurting yourself in some way: Not at all Total score: 0 Source: Developed by Drs. Evgeny Salomon, Brittney Aleman, Bola Tran and colleagues, with an educational supa from [employer]. Depression screen completed yes Social History Living Situation History Lives With: Children Housing: House Housing Other:: Has 2 children at home. Stays at home. Maltese-speaking only Tobacco History Smoking Status: Never smoker Second Hand Smoke Exposure: No Alcohol History Alcohol Intake: Never Domestic Abuse History Do You Feel Safe at Home: Yes Care OB Visit Log OB Flowsheet Initial Weight: Not Recorded Date -?-?-?-?-?-?-?-?-?-?-?-?- EGA Weight BP Alb Glu CTX Pres Fundal ht FHR Mov Dilation Station Effacement Hx Notes Visit Note 05/06/25 -?-?-?-?-?-?-?-?-?-?-?-?- 28w 4d 75.41 kg 127/76 absent 31 147 act jose No contractions loss of fluid or vaginal bleeding. Need glucos e challenge results 05/22/25 -?-?-?-?-?-?-?-?-?-?-?-?- 30w 6d 77.111 kg 123/77 absent 32 active No contractions loss of fluids or vaginal bleeding. GCT 86 06/05/25 -?-?-?-?-?-?-?-?-?-?-?-?- 32w 6d 77.281 kg 125/73 absent 36 156 ac tive No contractions no loss of fluids or vaginal bleeding Sched ule ultrasound size greater than dates 06/19/25 -?-?-?-?-?-?-?-?-?-?-?-?- 34w 6d 77.337 kg 109/65 absent 36 134 ac tive No contractions loss of fluids or vaginal bleeding. Need group B strep next week. 06/26/25 -?-?-?-?-?-?-?-?-?-?-?-?- 35w 6d 77.791 kg 108/66 occasional 36 156 active +F M No VB or LOF Was in OBT recently to r/o PTL. Cx closed. Given terb 07/05/25 -?-?-?-?-?-?-?-?-?-?-?-?- 37w 1d 78.528 kg 122/75 occasional 39 153 active Patient states movement is decreased. She is worried about the fluid on the baby. She states her last was complicated by low fluid. No contractions no vaginal bleeding. 07/10/25 -?-?-?-?-?-?-?-?-?-?-?-?- 37w 6d 78.471 kg 114/72 occasional 39 145 active Good movement no contractions no loss of fluids P atient is scheduled for a repeat next week. LATOYA Calculator Estimated Delivery Date Method Current WG Current Estimate 07/25/25 LMP (Certain) 38w 2d Other Estimates 07/23/25 Ultrasound #1 38w 4d Expected Delivery Route/Plan History of x 2 EDC 07/25/2025 For repeat Unknown scar as C-sections in [place], schedule at 38 weeks Patient okay with Pfannenstiel skin incision Specific Issue/Plans [facility]. Transfer of care from Dr. Vanessa at about 28 weeks. B+/antibody screen negative/hepatitis B surface antigen negative/rubella immune/RPR nonreactive/HIV negative/urine culture negative/hemoglobin A1c 5.4/hemoglobin 12.8/NIPT 46 XY/ Structural survey 20 weeks 3 days [facility] on chart and normal Glucose challenge test 86 Pap normal No urine or gonorrhea chlamydia on the chart Notes Visit Date: 07/10/25 Last Updated by: Arlin Franklin (OB Clinic)MD Bedside ABIEL reveals 13 and vertex presentation. movement and breathing are noted. Patient was verbally consented for a next week. Her preoperative instructions were reviewed. Visit Date: 07/05/25 Last Updated by: Arlin Franklin (OB Clinic)MD Patient sent to labor and delivery for NST ABIEL and weight. Group B strep is negative. Visit Date: 06/26/25 Last Updated by: Arlin Franklin (OB Clinic)MD GBBS done. Reviewed CS date 0f 07/15. Pt desires Pfanensteil incision Visit Date: 06/19/25 Last Updated by: Arlin Franklin (OB Clinic)MD Patient was scheduled 07/12/2025 but I am not on-call. Dr. Argueta is. Patient would prefer I do her so we are going to try to move it to 07/15/2025. Visit Date: 06/05/25 Last Updated by: Arlin Franklin (OB Clinic)MD Schedule ultrasound size greater than dates Scheduled 07/12/2025 at B8 and change secondary to unknown scar x 2 in [place]. EDC 07/23/2025. Visit Date: 05/06/25 Last Updated by: Arlin Franklin ([facility] Clinic)MD labs [facility] on chart be positive antibody negative hepatitis B surface antigen negative rubella immune RPR nonreactive HIV negative urine culture negative hemoglobin A1c 5.4 hemoglobin 12.8 NIPT 46 XY 20-3/7 weeks ultrasound from [facility] on chart and normal. Pending glucose challenge test. Patient had a Pap without enough cells unsure whether this was repeated. No GC chlamydia on chart. Office Procedures OBC Clinic LOC & Office Proc's Nursing/Assessment Patient Status: Established Patient OB Clinic Nursing Assessment: Medication Reconciliation, Update PMH in EMR and Vital Signs OB Clinic Coordination of Care: Complex Care and Chronic Disease 1-5, Consent,records obtained, informed consent, Education Simp Pt/Fam, Lab and Imaging orders, Results/Orders obtained and Staff clarify orders Special Needs: Heart tones Established Patient Charge Established Patient Point Assignment: 135 Established Patient Point Charge: EP Level 4 (120-155) Results Urine HCG Urine HCG Positive Last Edit by Mary Jane Olivo MA on 07/10/25 13:18 Assessment & Plan Diagnosis / Problem List (1) Previous section complicating : Status: Acute (2) : Status: Acute Qualifiers: Weeks of gestation: 38 weeks Qualified Code(s): Z3A.38 - 38 weeks gestation of
[2025-07-10 13:04] VITALS: BP 114/72; PULSE 98; RESP 18; TEMP 36.3; O2SAT 96; BMI 34.0
== END 2025-07-10 14:09 | disposition home or self-care (01) ==
LOC: HODSOBC 12:46
PROVIDERS: Supervising Provider Obstetrics & Gynecology; Visit Provider Obstetrics & Gynecology
DX: O09.293 Supervision of pregnancy with other poor reproductive or obstetric history, third trimester (principal); O34.219 Maternal care for unspecified type scar from previous cesarean delivery; Z3A.37 37 weeks gestation of pregnancy; Z88.6 Allergy status to analgesic agent
CPT/HCPCS: 99214; G0463

== ENCOUNTER 2025-07-15 05:27 | Inpatient (IN) | payer MEDICAID, SELFPAY ==
[2025-07-15] VITALS (17 sets, daily range): BP systolic 94–125; BP diastolic 59–78; PULSE 62–96; RESP 14–21; TEMP 36.6–36.9; O2SAT 96–100; BMI 31.9
[2025-07-15 06:15] LABS: Basophils # (Auto) 0.0 Thou/mm3 (0.0-0.2); Basophils % (Auto) 0 % (0-2.5); Eosinophils # (Auto) 0.0 Thou/mm3 (0.0-0.5); Eosinophils % (Auto) 1 % (0-10); Hematocrit 34.3 % (36.0-46.0); Hemoglobin 11.5 g/dL (12.0-16.0); Immature Granulocytes Auto 0.11 Thou/mm3 (0.00-0.00); Lymphocytes # (Auto) 1.8 Thou/mm3 (1.0-4.8); Lymphocytes % (Auto) 25 % (10-50); Mean Corpuscular HGB Conc 33.5 g/dl (31.0-37.0); Mean Corpuscular Hemoglobin 28.5 pg (25.0-35.0); Mean Corpuscular Volume 85 fL (80-100); Monocytes # (Auto) 0.4 Thou/mm3 (0.0-0.8); Monocytes % (Auto) 6 % (0-12); Neutrophils # (Auto) 4.7 Thou/mm3 (1.8-7.7); Neutrophils % (Auto) 67 % (37-80); Nucleated Red Blood Cell # 0.00 Thou/mm3 (0.00-0.00); Nucleated Red Blood Cell % 0 /100 WBC (0); Platelet Count 112 Thou/mm3 (140-440); RDW Standard Deviation 45.4 fL (36.4-46.3); Red Blood Count 4.03 Miln/mm3 (4.00-5.20); White Blood Count 7.1 Thou/mm3 (3.6-11.0)
[2025-07-15 07:14] LABS: Syphilis Nonreactive (Nonreactive)
[2025-07-15] MEDS: FAMOTIDINE INJ 10 MG/ML VIAL 2 ML 20 MG IV (07:17)
[2025-07-15] MEDS: ceFAZolin/D5W 2 GM IV 2 GM/100 ML BAG IV (07:17)
--- NOTE | 2025-07-15 08:44 | PC.NURSE ---
No flow brea SCD machine on unit A. Veronika LILLY made aware, central supply has been notified and will bring them to 4th floor CHRISTIAN.
[2025-07-15 09:24] LABS: Chlamydia trachomatis PCR Negative (Not Detect); Neisseria Gonorrhoeae DNA PCR Negative (Not Detect); Trichomonas Negative (Negative)
--- NOTE | 2025-07-15 12:32 | PD.LDDELS ---
Data (Ardon) Data Hx Section: Yes (X2) Maternal Blood Type: B Pos Rubella Titre: Positive RPR: Non-reactive Labs: Negative: RPR, Hepatitis B, HIV and Group Beta Strep and Unknown: Chlamydia and Gonorrhea : 3 Term: 2 : 0 Livin Abortions: Spontaneous & Theraputic: 0 Delivery Data (Ardon) Labor Data Induction/Augmentation Agent: None ROM date: 07/15/25 ROM time: 07:58 Amniotic membrane rupture type: Artificial Amniotic fluid description: Clear Delivery Data EDC: 07/25/25 Date of arrival to unit: 07/15/25 Time of arrival to unit: 05:45 Ebro delivery date: 07/15/25 delivery time: 07:58 Gestational age (weeks): 38 Gestational age (days): 4 Placenta delivery date: 07/15/25 Placenta delivery time: 07:59 Delivered by: Arlin Franklin (OB Clinic) Delivery nurse: Shilpi Muller RN [facility] nurse: Fidencio Segovia RN Gas Mask Inspector at delivery: No Support person(s) at delivery: fob Delivery Method Delivery method: Low Transverse Presentation: Vertex position: OA Anesthesia Type Anesthesia Type: None Delivery Room Medications Delivery room medications: Pitocin 20 u IV Placenta Placenta delivery description: Manual Removal Cord blood sent to lab: Yes cord blood collection: Cord Blood Type Episiotomy Episiotomy description: None EBL Estimated blood loss (ml): 600 Umbilical Cord cord description: 3 Vessels Additional Procedures See op report for further details Complications Complications: None Ebro Data (Ardon) Ebro Data order: 1 's gender: Male Identification band number: [id number] weight (gms): 3700 g Weight (pounds): 8 lbs and 2.5 ozs length: 52.07 cm 1 minute: 9 5 minutes: 9
--- NOTE | 2025-07-15 12:35 | ESOP_ITS ---
Operative Note - AUTOMOTIVE FUEL SYSTEMS CONVERTER Procedure Date of procedure: 07/15/25 Procedure Performed: Repeat low-transverse section Indication: Patient is a 29-year-old -0-0-2 history of x 2 in [place]. She has an unknown scar. She has a vertical skin incision. She presents at 38-4/7 weeks for elective repeat section. She desires a Pfannenstiel skin incision. care is up-to-date in the chart with the [facility] OB clinic. Pre-Op diagnosis: 1. Intrauterine at 38-4/7 weeks 2. Previous x 2, performed in [place], with unknown scar. No op report available Post-Op diagnosis: Same Anesthesia type: Spinal Procedure description: After obtaining informed consent, the patient was brought back to the operating room and spinal anesthesia administered. She was then prepped and draped in a dorsal supine position with a leftward tilt in a normal sterile fashion. A Yost catheter was inserted into the patient's bladder. The patient was given 2 g of Ancef by anesthesia. A Pfannenstiel skin incision was made with a scalpel and carried down to the underlying fascia. The fascia was incised in the midline and the fascial incision extended laterally using Pacheco scissors. The superir aspect fascia was grasped Estela clamps, and the underlying rectus muscles dissected off using blunt and sharp dissection. This was repeated in the infra aspect the incision. The rectus muscle was the midline the peritoneum was picked up and entered sharply with a scalpel. This was extended superiorly and inferiorly with good visualization of the bladder. The bladder blade was inserted and the uterus was incised in a low transverse fashion with a scalpel above the bladder reflection. The uterine incision was extended lateral using blunt dissection with the surgeon's fingers. The bag rg ruptured, and copious clear fluid was noted. The bladder blade was removed, and the infant was delivered atraumatically. The cord was clamped and cut after waiting approximately 1 minute. The was handed off to the waiting pediatric staff. Cord blood was collected. Cord gases were saved. The placenta was then manually removed, and the uterus was exteriorized and cleared of all clots and debris. The uterine incision was repaired using 0 Monocryl in a running locked fashion. Excellent hemostasis was noted. The uterus was returned to the patient's abdominal cavity, and copious irrigation carried out with warm normal saline. The uterine incision was reexamined and noted to be hemostatic. After ensuring the rectus muscles were hemostatic, these were reapproximated in the midline using a running suture of 0 Monocryl. The fascia was closed with 0 Vicryl in a running fashion. The subcutaneous tissues were irrigated found to be hemostatic. These were reapproximated using a running suture of 2-0 plain. The skin was closed with a subcuticular suture of 4-0 Monocryl and a Dermabond dressing. The patient tolerated the procedure well, sponge, lap, needle, and instrument counts were correct x 2. The patient went to the recovery area awake and in stable condition. Pathology was none. Fluids: crystalloid Fluid amount (mL): 1,000 Urine output (mL): 200 Specimen: none Implants: None Estimated blood loss (ml): 600 Findings: Live born male in the OA presentation with a loose nuchal cord x 1 no meconium. Apgars were 9 and 9 weight was 8 pounds 3 ounces at time of was 0758. The placenta was complete, spontaneous, grossly normal. Patient's uterus, fallopian tubes and ovaries were normal. Patient had very little scar tissue present in her abdomen. She had a thick lower uterine segment. Complications: none Surgical staff Operation Date: 07/15/25 07:45 Case Staff TOOTH CLERK: Leisa Vines RN First Assistant: Andreia Prabhakar Diagnosis Discharge Diagnosis (1) delivery delivered: Status: Acute (2) Previous section complicating : Status: Acute Problem List Completed Was Problem List Reviewed/Reconciled?: Yes
[2025-07-15] MEDS: OXYTOCIN in NS 20 units 20 UNIT/1,000 ML BAG 125 UNIT IV (14:28)
[2025-07-15] MEDS: KETOROLAC INJ 30 MG/ML VIAL IVP ×2 (14:29→20:05)
[2025-07-15] MEDS: RINGERS LACTATED 1000 ML 1,000 ML 100 ML IV (23:56)
[2025-07-16] VITALS: BP 99/61; PULSE 58; RESP 17; TEMP 36.4; O2SAT 98
[2025-07-16] MEDS: KETOROLAC INJ 30 MG/ML VIAL IVP ×2 (02:21→08:23)
[2025-07-16 03:34] VITALS: BP 96/60; PULSE 78; RESP 17; TEMP 36.8; O2SAT 98
[2025-07-16 05:54] LABS: Basophils # (Auto) 0.0 Thou/mm3 (0.0-0.2); Basophils % (Auto) 0 % (0-2.5); Eosinophils # (Auto) 0.0 Thou/mm3 (0.0-0.5); Eosinophils % (Auto) 0 % (0-10); Hematocrit 28.5 % (36.0-46.0); Hemoglobin 9.7 g/dL (12.0-16.0); Immature Granulocytes Auto 0.12 Thou/mm3 (0.00-0.00); Lymphocytes # (Auto) 2.2 Thou/mm3 (1.0-4.8); Lymphocytes % (Auto) 21 % (10-50); Mean Corpuscular HGB Conc 34.0 g/dl (31.0-37.0); Mean Corpuscular Hemoglobin 29.0 pg (25.0-35.0); Mean Corpuscular Volume 85 fL (80-100); Monocytes # (Auto) 0.7 Thou/mm3 (0.0-0.8); Monocytes % (Auto) 7 % (0-12); Neutrophils # (Auto) 7.7 Thou/mm3 (1.8-7.7); Neutrophils % (Auto) 72 % (37-80); Nucleated Red Blood Cell # 0.00 Thou/mm3 (0.00-0.00); Nucleated Red Blood Cell % 0 /100 WBC (0); Platelet Count 109 Thou/mm3 (140-440); RDW Standard Deviation 46.1 fL (36.4-46.3); Red Blood Count 3.35 Miln/mm3 (4.00-5.20); White Blood Count 10.7 Thou/mm3 (3.6-11.0)
[2025-07-16 08:00] VITALS: BP 98/60; PULSE 75; RESP 17; TEMP 36.8; O2SAT 98
[2025-07-16] MEDS: DOCUSATE SOD 100 MG CAPSULE PO (08:23)
[2025-07-16 11:22] VITALS: BP 103/68; PULSE 72; RESP 16; TEMP 36.8; O2SAT 98
--- NOTE | 2025-07-16 12:10 | ESPR_ITS ---
Subjective Subjective Interval history: Delivery type: Patient doing well this morning. No acute complaints. Ambulating, tolerating p.o., and voiding without difficulty. HTN/Pre-E screen negative: No CP, SOB, MISTRY, visual changes, RUQ pain. : Yes Lochia: diminishing Bowel: Flatus + / BM + UOP: Adequate Exam Vital Signs Temp Pulse Resp BP Pulse Ox O2 Del Method 98.2 F 72 16 103/68 98 Room Air 07/16/25 11:22 07/16/25 11:22 07/16/25 11:22 07/16/25 11:22 07/16/25 11:22 07/15/25 10:44 Constitutional Constitutional: no acute distress Routine HEENT Exam Head: Present normocephalic and atraumatic Eye: Present EOMI and PERRL ENT: Present mucous membranes moist Routine Neck Exam Neck: Present supple and trachea midline Routine Respiratory Exam Respiratory: Present chest non-tender, lungs clear, normal breath sounds and no resp distress Routine Cardiovascular Exam Cardiovascular: Present RRR Routine Abdominal Exam Abdominal: Present soft and normoactive bowel sounds Routine Extremities Exam Extremities: Present full ROM Routine Skin Exam Skin: Present intact, dry and warm Routine Neurological Exam Neurological: Present alert, oriented X3 and CN II-XII intact Routine Psychiatric Exam Psychiatric: Present normal affect and normal thought process Objective Labs 07/16/25 05:26 Labs: Laboratory Results - last 24 hr 07/16/25 05:26 WBC 10.7 D RBC 3.35 L Hgb 9.7 L Hct 28.5 L MCV 85 MCH 29.0 MCHC 34.0 RDW Std Deviation 46.1 Plt Count 109 L Neut % (Auto) 72 Lymph % (Auto) 21 [place] % (Auto) 7 Eos % (Auto) 0 Baso % (Auto) 0 Neut # (Auto) 7.7 Lymph # (Auto) 2.2 [place] # (Auto) 0.7 Eos # (Auto) 0.0 Baso # (Auto) 0.0 Immature Gran # (Auto) 0.12 H Absolute Nucleated RBC 0.00 Immature Gran % 1 H Nucleated RBC % 0 Assessment & Plan Problem List (1) Previous section complicating : Status: Acute (2) delivery delivered: Status: Acute Assessment and plan: 1. Continue routine /post-op care 2. Labs reviewed, cbc appropriate 3. Remove dressing/Yost 4. Encourage to ambulate, shower 5. Encourage PO intake, breast feeding Time Spent With Patient Time: Total time spent is greater than 50% in coordination of care (as documented) at patient's floor/unit and/or counseling patient:
[2025-07-16] MEDS: HYDROcodone/APAP 5/325 TABLET 2 TAB PO (15:28)
[2025-07-16] MEDS: guaiFENesin/DM 10 ML UDC PO (16:23)
[2025-07-16 19:30] VITALS: BP 103/63; PULSE 83; RESP 16; TEMP 36.7; O2SAT 97
[2025-07-17] MEDS: KETOROLAC INJ 30 MG/ML VIAL IVP (00:05)
[2025-07-17 03:26] VITALS: BP 94/60; PULSE 83; RESP 16; TEMP 37; O2SAT 97
--- NOTE | 2025-07-17 07:56 | PD.LDPPPRG ---
Subjective Subjective Interval history: The patient is a 29-year-old G3 now P3003 postop day #2 status post a repeat low-transverse section 07/15/2025. This morning patient is sitting up in a chair eating her breakfast. She is Sudanese-speaking only and the entire exam and history is obtained with jak Menard RN on labor and delivery. Patient reports she is emptying her bladder up to the restroom passing flatus and had a bowel movement today. She is tolerating a general diet and has a good appetite. She is breast and bottlefeeding. She states her pain is controlled with oral pain medication and her incision hurts less than last time. Of note she had a history of 2 vertical skin incisions and this was a Pfannenstiel skin incision. She is ready to go home. She denies heavy bleeding fevers chills nausea or vomiting. Exam Vital Signs Temp Pulse Resp BP Pulse Ox O2 Del Method 98.6 F 83 16 94/60 97 Room Air 07/17/25 03:26 07/17/25 03:26 07/17/25 03:26 07/17/25 03:26 07/17/25 03:26 07/17/25 03:26 Narrative Exam Patient is alert and orient x 3 in no apparent distress. Resting comfortably and eating breakfast. Abdomen is soft incision clean dry and intact Dermabond dressing in place. Extremities show no significant edema or erythema fundus is 20 weeks size and nontender. Objective Labs 07/16/25 05:26 Assessment & Plan Problem List (1) delivery delivered: Status: Acute (2) care following delivery: Problem details: Patient is doing well. Will discharge today. Discharge instructions given including no heavy lifting, no intercourse, no strenuous exercise x 6 weeks. Pelvic rest x 6 weeks. Patient is to call the clinic for a follow-up appointment in 2 weeks. She is to call for any fevers chills heavy vaginal bleeding or severe depression. All questions were answered. Status: Acute Plan Comment Plan Comment: Discharge home today. Time Spent With Patient Time: Total time spent is greater than 50% in coordination of care (as documented) at patient's floor/unit and/or counseling patient: Time with patient: less than 15 minutes
[2025-07-17 07:57] VITALS: BP 110/69; PULSE 101; RESP 16; TEMP 37.2; O2SAT 97
--- NOTE | 2025-07-17 07:59 | ESDS_ITS ---
DS: Providers Provider Date of admission: 07/15/25 05:27 Primary care physician: Physician No Primary/Family Admitting Provider: Arlin Franklin MD ([facility] Clinic) Attending Provider on Admission: Garland Argueta MD Consults: 07/15/25 08:44 Referral Routine Comment: Attending Provider on DC: Arlin Franklin MD ([facility] Clinic) Discharging Provider: Arlin Franklin MD (OB Clinic) Anticipated date of discharge: 07/17/25 DS: Diagnosis Discharge Diagnosis (1) care following delivery: Status: Acute Assessment & Plan: Discharge instructions given including pelvic rest x 6 weeks no heavy lifting x 6 weeks no exercise x 6 weeks patient is discharged home postoperative day #2 in stable condition. (2) delivery delivered: Status: Acute Problem List Completed Was Problem List Reviewed/Reconciled?: Yes Summary/Hosp Course Brief History: Patient is a 29-year-old -0-0-3 admitted 07/15/2025 for a scheduled elective repeat section. She was 38-4/7 weeks with an EDC of 07/25/2025. She had a history of x 2 in [place] with an unknown uterine scar. Please see history and physical for further details. Her care is up-to-date and on the chart with the [facility] OB clinic. Hospital course: Patient underwent an uncomplicated repeat low-transverse section and section 07/15/[address] Betty Franklin. Please see op report for further details. Predelivery hemoglobin 11.5. Postdelivery hemoglobin 9.7. The patient had uncomplicated post op course. By postoperative day #2, patient was ambulating, voiding, passing flatus and having bowel movements. She was tolerating a general diet. Her bleeding was minimal. She denies fevers or chills. Patient was breast and bottlefeeding. Her pain was controlled with oral pain medication and patient stated she was having less pain than with her vertical skin incisions. Patient was discharged home postoperative day #2 in stable condition. Peripartum Data Delivery Method: Low Transverse Episiotomy Description: None Procedures: Procedures Operation Date: 07/15/25 07:45 Actual Procedure Side Surgeon p in OB Arlin Franklin (OB Clinic)MD complications: none Status at Discharge Cognitive/behavioral status at discharge: Patient is alert and orient x 3 in no apparent distress Functional status at discharge: independent ambulation Overall status at discharge: patient is progressing back to baseline Time Spent with Patient Time attestation: Total time spent providing and/or coordinating discharge services: Time spent: Less than 30 minutes Specific discharge activities: Pelvic rest x 6 weeks. No heavy lifting, strenuous exercise x 6 weeks. Call for fevers, heavy vaginal bleeding, depression. Follow-up in 2 weeks. Exam Vital Signs Temp Pulse Resp BP Pulse Ox O2 Del Method 98.6 F 83 16 94/60 97 Room Air 07/17/25 03:26 07/17/25 03:26 07/17/25 03:26 07/17/25 03:26 07/17/25 03:26 07/17/25 03:26 Narrative Exam Patient is alert and oriented x 3 in no apparent distress fundus is firm nontender incisions clean dry and intact with a Dermabond dressing in place. Extremities show no significant edema or erythema. Discharge Plan Plan Patient Disposition: HOME (Self Care) Disposition Comment: Stable Prescriptions/Referrals Prescriptions/Med Rec: New acetaminophen 325 mg Tablet 650 mg PO Q6HR PRN (Reason: Patient rated pain of 3) Qty: 60 0RF hydrocodone-acetaminophen 5-325 mg Tablet 2 tab PO Q6HR MDD 3 PRN (Reason: Patient rated pain 9 to 10) Qty: 20 0RF docusate sodium 100 mg Capsule 100 mg PO QDAY Qty: 60 0RF ibuprofen 800 mg tablet 800 mg PO Q8H PRN (Reason: pain) Qty: 30 0RF Referrals: No Primary/Family,Physician [Primary Care Provider] Patient/Caregiver Discharge Instructions Discharge Activity: activity as tolerated Other Discharge Activity Instructions:: No heavy lifting, no strenuous exercise x 6 weeks. Pelvic rest x 6 weeks. Other Discharge Diet Instructions: High iron diet Education Materials: After Delivery Napoleon Concerns, C Section Dc, Feel Healthy After Print Language: Greek Activity Restrictions/Additional Instructions: Call for fever, heavy vaginal bleeding, severe depression. Follow-up in 2 weeks. Stand Alone Forms: Katie Award Info., Patient Portal Info Letter Discharge Order Discharge Orders: Discharge (Routine); Ordered 07/17/25 Ordered By: Arlin Franklin (OB Clinic) Planned Discharge Date 07/17/25
--- NOTE | 2025-07-17 08:01 | PD.LDHP ---
Documentation for date of: 07/15/25 OB Labor/Induct. HPI History of Present Illness Chief complaint: Scheduled repeat : 3 Para: 2 Term pregnancies: 2 pregnancies: 0 Living children: 2 History of Abortions: Spontaneous and Elective: 0 History of sections: Yes (X2) History of : No Date of last menstrual period: 10/18/24 LATOYA: 07/25/25 Gestational Age (weeks): 38 Gestational Age (days): 4 Gestational age based on last menstrual period: 38 History of present illness: The patient is a 29-year-old -0-0-2 history of x 2 in [place] with unknown scar x 2 presents at 38-4/7 weeks with an EDC of 07/25/2025 for an elective repeat section. Her care is all up-to-date and on the chart with [facility]. The day of admission, patient denied contractions loss of fluids or vaginal bleeding. She reported good movement. History of Present Dating criteria: LMP confirmed by 1st trimester US Adequate Care: Yes Ultrasounds: normal mid trimester US Obstetrical complications: none Medical complications: none Labs Maternal Blood Type: B Pos Labs: Positive: Rubella Titre, Negative: RPR, Hepatitis B, HIV and Group Beta Strep and Unknown: Chlamydia, Gonorrhea, Herpes Type 1, Herpes Type 2 and Covid-19 Past Medical History Surgical History SURGICAL: Positive Section (X2) Meds Home Medications and Allergies Home Medications ?Medication ?Instructions ?Recorded ?Confirmed ?Type No Known Home Medications 07/15/25 07/15/25 History Allergies Allergy/AdvReac Type Severity Reaction Status Date / Time naproxen Allergy Verified 07/15/25 05:44 OB Exam Physical Exam Vital signs: Temp Pulse Resp BP Pulse Ox O2 Del Method 98.6 F 83 16 94/60 97 Room Air 07/17/25 03:26 07/17/25 03:26 07/17/25 03:26 07/17/25 03:26 07/17/25 03:26 07/17/25 03:26 Constitutional Constitutional: no acute distress Routine Cardiovascular Exam Cardiovascular: Present RRR Routine Abdominal Exam Abdominal: Present soft and normoactive bowel sounds Detailed Labor and Delivery Exam Membranes: intact monitor accelerations: 15x15 monitor decelerations: None continuous churn buttermaker variability: Moderate (11-25) Contraction frequency (min): Irregular Tachysystole: No Contraction intensity: Mild Routine Extremities Exam Extremities: Present full ROM Routine Skin Exam Skin: Present intact, dry and warm Routine Psychiatric Exam Psychiatric: Present normal affect and normal thought process OB Results Labs 07/16/25 05:26 OB Assessment & Plan Assessment and Plan (1) : Status: Acute (2) Previous section complicating : Status: Acute Assessment and plan: Patient with previous x 2 in [place] with an unknown scar. She is consented at 38-4/7 weeks on 07/15/2025 for a repeat the risks of the procedure were discussed with patient, including the risk of bleeding, infection, blood transfusion, damage to bowel, bladder, blood vessels, other organs. Prolonged hospital stay, and further surgery should above occur. All questions were answered, all consents were signed. Of note manage patient is Malay-speaking only and all consents were performed through an official captain/airline pilot. (1) Qualifiers: Weeks of gestation: 38 weeks Qualified Code(s): Z3A.38 - 38 weeks gestation of
[2025-07-17] MEDS: DOCUSATE SOD 100 MG CAPSULE PO ×2 (08:16→08:20)
[2025-07-17 12:30] VITALS: BP 109/72; PULSE 100; RESP 20; TEMP 37; O2SAT 99
== END 2025-07-17 14:15 | disposition home or self-care (01) | DRG 540 ==
LOC: S4SX 06:14 → S4NX 08:08
PROVIDERS: Admitting Provider Obstetrics & Gynecology; Visit Provider Obstetrics & Gynecology
PROC: 10D00Z1 Extraction of Products of Conception, Low, Open Approach (ICD-10-PCS; CPT 59514; principal; 2025-07-15 07:30)
DX: O34.211 Maternal care for low transverse scar from previous cesarean delivery (principal); O69.81X0 Labor and delivery complicated by cord around neck, without compression, not applicable or unspecified; Z37.0 Single live birth; Z3A.38 38 weeks gestation of pregnancy
CPT/HCPCS: 36415; 85025; 86780; 86850; 86900; 86901; 87491; 87591; 87661; A4217; A4314; A4649; J0689; J1100; J1885; J2274; J2371; J2405; J2590; J3010; J3490; J7120; S0191; A9270; J2270